=== PATIENT | female | born 1940 | race Caucasian/White ===

== ENCOUNTER 2017-08-31 13:16 | Outpatient (CLI) | payer MEDICARE ==
[2017-08-31 14:35] LABS: #Eosinphils 0.2 thou/uL (0.0-0.7); #Monocytes 0.6 thou/uL (0.11-0.59); #Neutrophils 6.7 thou/uL (1.40-6.50); %Basophils 0.5 % (0.0-1.0); %Eosinophils 2.5 % (0.0-10.0); %Lymphocytes 21.2 % (21.0-51.0); %Monocytes 5.9 % (0.0-10.0); %Neutrophils 69.9 % (42.0-75.0); Hemoglobin 13.5 g/dL (12.0-16.0); Mean Corpuscular HGB CONC 32.5 g/dL (32.0-36.0); Mean Corpuscular Hemoglobin 30.2 pg (27.0-31.0); Mean Corpuscular Volume 92.9 fl (81.0-99.0); Mean Platelet Volume 7.5 fL (7.4-10.4); Platelet Count 363 thou/uL (130-400); RBC Distribution Width 12.6 % (11.5-14.5); Red Blood Cell (RBC) Count 4.48 mill/uL (4.20-5.40); White Blood Cell (WBC) Count 9.6 thou/uL (4.8-10.8)
[2017-08-31 14:40] LABS: Prothrombin Time 12.8 SEC (12.0-14.7)
[2017-08-31 14:50] LABS: Bilirubin Negative (Negative); Blood, Urine Negative (Negative); Clarity CLEAR (Clear); Glucose, Urine (Dipstick) Negative (Negative); Leukocyte Trace (Negative); Nitrite Negative (Negative); Protein, Urine (Dipstick) Negative (Neg-Trace); Specific Gravity, Urine 1.014 (1.002-1.036)
[2017-08-31 14:54] LABS: Bacteria/HPF None Seen HPF (None Seen); Hyaline Casts/LPF 0-3 HYALINE CAST LPF (0-3 Hyaline); Pathc Cast-AUWi Flag 0.67 (0-2.49); Squamous Epithelial 0-3 HPF (0-3); WBC/HPF 0-3 HPF (0-3)
[2017-08-31 15:02] LABS: Anion Gap 12 mmol/L (10-20); BUN (Urea Nitrogen) 17 mg/dL (9.8-20.1); Calc. Creatinine Clearance 0 mL/min (70-130); Calcium 10.3 mg/dL (7.8-10.44); Carbon Dioxide 25 mmol/L (23-31); Chloride 101 mmol/L (98-107); Estimated GFR-MDRD 66; Glucose 111 mg/dL (83-110); Potassium 3.7 mmol/L (3.5-5.1); Sodium 134 mmol/L (136-145)
--- NOTE | 2017-08-31 15:52 | EKG ---
Test Reason : Blood Pressure : / mmHG Vent. Rate : 092 BPM Atrial Rate : 092 BPM P-R Int : 192 ms QRS Dur : 090 ms QT Int : 348 ms P-R-T Axes : 050 088 043 degrees QTc Int : 430 ms Normal sinus rhythm Normal ECG Confirmed by FABRICE MATTHEWS ([id number]) on 08/31/2017 3:52:11 PM Referred By: NIYAHRO Confirmed By:FABRICE MATTHEWS
== END 2017-08-31 13:17 | disposition home or self-care (01) ==
LOC: LABBT 13:16
PROVIDERS: ATTEND Orthopaedic Surgery
DX: Z01.818 Encounter for other preprocedural examination (principal); M17.11 Unilateral primary osteoarthritis, right knee
CPT/HCPCS: 80048; 81001; 85025; 85610; 87081; 93005; 93010

== ENCOUNTER 2017-09-09 14:57 | Outpatient (CLI) | payer MEDICARE | END 2017-09-09 14:58 | disposition home or self-care (01) | LOC: LABBT 14:57 | PROVIDERS: ATTEND Orthopaedic Surgery | DX: Z01.818 Encounter for other preprocedural examination (principal); M17.11 Unilateral primary osteoarthritis, right knee | CPT/HCPCS: 86850; 86900; 86901 ==

== ENCOUNTER 2017-09-12 05:30 | Day surgery (SDC) | payer MEDICARE ==
[2017-08-31 13:57] VITALS: BMI 41.1
[2017-09-12] MEDS ORDERED: CEFAZOLIN/Water 2 GM/20 ML SYRINGE ONE (06:10)
[2017-09-12] MEDS ORDERED: Tranexamic Acid 1,000 MG/100 ML BAG ONE ×2 (06:11→09:20)
[2017-09-12] MEDS ORDERED: Midazolam HCl 2 mg/2 ml Vial ONE (06:27)
[2017-09-12] MEDS ORDERED: Fentanyl 250 MCG/5 ML VIAL ONE ×2 (06:27→07:28)
[2017-09-12] MEDS ORDERED: Vancomycin HCl 1.5 GM in Sodium Chloride 0.9% 250 ML 300 ML IVPB SCH (06:30)
[2017-09-12] MEDS ORDERED: Bupivacaine 0.5% 10 ML VIAL ONE (06:35)
[2017-09-12] MEDS ORDERED: Ondansetron HCl/PF 4 MG/2 ML Vial IVP PRN ×3 (07:21→09:29)
[2017-09-12] MEDS ORDERED: Zolpidem Tartrate 5 MG TAB PO PRN ×2 (07:21→09:26)
[2017-09-12] MEDS ORDERED: Promethazine HCl 25 MG/ML VIAL IM PRN ×3 (07:21→09:29)
[2017-09-12] MEDS ORDERED: HYDROcodone/Acetaminophen 10/325 mg Tablet PO PRN ×2 (07:21)
[2017-09-12] MEDS ORDERED: Ropivacaine 0.2% 550 ML 550 ML NERVE BLCK SCH (07:21)
[2017-09-12] MEDS ORDERED: Fentanyl 100 MCG/2 ML VIAL IV PRN (07:21)
[2017-09-12] MEDS ORDERED: traMADol HCl 50 MG TAB PO PRN ×3 (07:21→09:26)
[2017-09-12] MEDS ORDERED: diphenhydrAMINE 25 MG CAP PO PRN (09:26)
[2017-09-12] MEDS ORDERED: Acetaminophen 325 MG TAB PO PRN (09:26)
[2017-09-12] MEDS ORDERED: Promethazine HCl 25 MG/ML VIAL SLOW IVP PRN (09:29)
[2017-09-12] MEDS ORDERED: Tranexamic Acid 1,000 MG in Sodium Chloride 0.9% 100 ML IVPB SCH (09:30)
--- NOTE | 2017-09-12 09:43 | OP ---
DATE OF PROCEDURE: 09/12/2017 PREOPERATIVE DIAGNOSIS: Right knee osteoarthrosis. POSTOPERATIVE DIAGNOSIS: Right knee osteoarthrosis. PROCEDURE PERFORMED: Right total knee replacement using [employer] pinless navigation. SURGEON: Darrick Giron M.D. CLOTH DESIZING RANGE TENDER: Aylin. ANESTHESIA: The patient had general anesthetic as well as preoperative blocks. CONDITION: She did go to recovery room in stable condition. IMPLANTS: To the right knee is Jennifer [employer] total knee system, femur size 5, tibial baseplate s ize 4. We used a 4 x 9 mm CS X3 poly and an asymmetric 29 x 9 X3 patella. DISPOSITION: She did go to recovery room in stable condition. INDICATIONS: A 77-year-old active female who had her left knee replaced 2 years ago and at this time she is wishing to have a right knee replaced secondary to significant daily pain. PROCEDURE IN DETAIL: After all appropriate consent forms were explained and signed, the patient was taken back to the Operating Room and at this time was given general anesthetic. Once the level of ane sthesia was appropriate, a well-padded tourniquet was placed on the right leg and the leg was then pr epped and draped in standard surgical fashion. The limb was exsanguinated and tourniquet taken up to 300 mmHg. Midline incision was made with a 10 blade down through the skin and subcutaneous tissue. Marques vie electrocautery was used to coagulate any brisk venous bleeding. A new blade was used to make a me dial parapatellar arthrotomy. Small subperiosteal release was performed medially and excess fat pad w as removed. The knee was flexed up to gain access to the femur. The femur was navigated and distal fe moral resection was made. Epicondylar access was used to align our sizing jig and this was pinned in place. We sized our femur to be a size 5, 4:1 cutting block was applied and pinned. Anterior and post erior chamfer cuts were then made. We navigated out our proximal tibia and made our proximal tibial r esection. Spreaders were used to remove any posterior osteophytes off the back of the femur as well a s remaining meniscal tissue. A long alignment bernabe was then used to achieve correct rotation of our ti bial baseplate and a size 4 was chosen. This was pinned in place. We trialed the polyethylene and a 4 x 9 mm CS X3 polyethylene gave us full extension and good stability throughout range of motion. Two towel clips and a saw were used to cut our patella. Three lug nuts were drilled and 29 x 9 X3 patella was trialed which sat nicely in the trochlear groove. We then drilled our femur and punched our tibi a. All components were removed. The knee was thoroughly irrigated and dried. Cement was mixed into th e cement gun on the back table. Components were then placed. The knee was held out in full extension until the cement had dried. All excess bone cement was removed. Multiple #2 Vicryl stitches as well as a Quill was used to close our extensor mechanism. 0 Quill followed by a running Monoderm was then used to close the skin. Surgicel glue was then used on the skin. Once this had dried, soft tissue carol ssing was applied to the limb, tourniquet was let down, and the toes pinked up nicely. The patient w as then awakened and taken to the Recovery Room in stable condition. All counts were correct at the e nd of the case. The patient did receive preoperative IV antibiotics. The patient was injected with E xparel for postoperative pain relief.
[2017-09-12] MEDS ORDERED: Calcium Chloride 1 GM/10 ML Abboject SYRINGE ONE (10:14)
[2017-09-12] MEDS ORDERED: hydrALAZINE 20 MG/ML VIAL SLOW IVP PRN (12:08)
[2017-09-12] MEDS: Ketorolac Tromethamine 30 MG/ML VIAL IVP SCH ×3 (13:21→23:39)
[2017-09-12] MEDS: CEFAZOLIN/Water 2 GM/20 ML SYRINGE SLOW IVP SCH ×2 (14:37→21:08)
[2017-09-12] MEDS ORDERED: Ropivacaine 0.2% HCl/PF (40 MG/20 ML VIAL) ONE (16:39)
[2017-09-12] MEDS ORDERED: Ropivacaine 0.5% HCl/PF (150 MG/30 ML VIAL) ONE (16:39)
[2017-09-12] MEDS ORDERED: ePHEDrine/0.9% NaCl/PF SYRINGE 50 mg/10 ml ONE (17:09)
[2017-09-12] MEDS ORDERED: PHENYLEPHRINE-NS 100 MCG/ML 10 ML SYRINGE ONE (17:09)
[2017-09-12] MEDS ORDERED: Ondansetron HCl/PF 4 MG/2 ML Vial ONE (17:09)
[2017-09-12] MEDS ORDERED: Dexamethasone 20 MG/5 ML VIAL ONE (17:09)
[2017-09-12] MEDS ORDERED: PROPOFOL 200 MG/20 ML VIAL ONE (17:09)
[2017-09-12] MEDS: Sodium Chloride 0.9% 1,000 ML IV SCH ×2 (19:15→21:30)
[2017-09-12] MEDS ORDERED: Lisinopril 20 MG TAB PO SCH (21:00)
--- NOTE | 2017-09-12 21:07 | PDOC.PN ---
- Subjective Encounter Start Date: 09/12/17 Encounter Start Time: 12:30 Patient seen and examined. No new complaints. Pain controlled. No CP/SOB - Objective MAR Reviewed: Yes Vital Signs & Weight: Vital Signs (12 hours) Temp Pulse Resp BP Pulse Ox 09/12/17 20:00 97.7 F 81 20 09/12/17 11:00 97.7 F 81 20 114/69 98 Weight Weight 232 lb EKG Reviewed by me: Yes (SR) Phys Exam - Physical Examination Constitutional: NAD Respiratory: no wheezing, no rhonchi Cardiovascular: RRR, no rub Gastrointestinal: soft, non-tender, positive bowel sounds Musculoskeletal: no edema Dx/Plan - Plan DVT proph w/SCDs IMPRESSION: 1. HTN 2. DJD 3. Hypothyroidism PLAN: * Cont Lisinopril & HCTZ * Cont post op care * Cont to monitor Review of Systems - Review of Systems Respiratory: negative: Cough, Dry, Shortness of Breath, Hemoptysis, SOB with Excertion, Pleuritic Pain, Sputum, Wheezing Cardiovascular: negative: chest pain, palpitations, orthopnea, paroxysmal nocturnal dyspnea, edema, light headedness Gastrointestinal: negative: Nausea, Vomiting, Abdominal Pain, Diarrhea, Constipation, Melena, Hematochezia - Medications/Allergies Allergies/Adverse Reactions: Allergies Allergy/AdvReac Type Severity Reaction Status Date / Time No Known Allergies Allergy Unverified 08/31/17 13:54 Medications: Current Medications Acetaminophen (Tylenol) 650 mg PO Q4H PRN PRN Reason: ALEXANDRE/ T > 101F; Mild Pain (1-3) Hydrocodone Bitart/Acetaminophen ([place] 10/325) 1 tab PO Q4H PRN PRN Reason: Pain (1-3) Hydrocodone Bitart/Acetaminophen ([place] 10/325) 2 tab PO Q4H PRN PRN Reason: PAIN (4-6) Aspirin (Ecotrin) 81 mg PO BID KAMRYN Cefazolin Sodium (Ancef) 2 gm SLOW IVP Q8HR KAMRYN Stop: 09/12/17 22:01 Last Admin: 09/12/17 14:37 Dose: 2 gm Diphenhydramine HCl (Benadryl) 25 mg PO Q6H PRN PRN Reason: Itching Fentanyl (Sublimaze) 50 mcg IV Q1H PRN PRN Reason: BREKTHROUGH PAIN Ferrous Gluconate (Fergon) 324 mg PO BID [facility] Hydralazine HCl (Apresoline) 5 mg SLOW IVP Q4H PRN PRN Reason: SBP Greater Than 180 Ropivacaine (Ropivacaine 0.2% 550 Ml) 550 mls @ 0 mls/hr NERVE BLCK INF KAMRYN PRN Reason: As Directed Sodium Chloride (Normal Saline 0.9%) 1,000 mls @ 100 mls/hr IV .Q10H [facility] Last Admin: 09/12/17 19:15 Dose: Not Given Iron/Minerals/Multivitamins (Theragran M) 1 tab PO DAILY [facility] Ketorolac Tromethamine (Toradol) 15 mg IVP Q6HR [facility] Stop: 09/14/17 06:01 Last Admin: 09/12/17 18:02 Dose: 15 mg Lisinopril (Zestril) 20 mg PO BID [facility] Ondansetron HCl (Zofran) 4 mg IVP Q6H PRN PRN Reason: Nausea/Vomiting Ondansetron HCl (Zofran) 4 mg IVP Q6H PRN PRN Reason: Nausea/Vomiting Promethazine HCl (Phenergan) 12.5 mg IM Q4H PRN PRN Reason: Nausea Promethazine HCl (Phenergan) 12.5 mg IM Q4H PRN PRN Reason: Nausea/Vomiting Senna/Docusate Sodium (Senokot S) 2 tab PO BID [facility] Sodium Chloride (Flush - Normal Saline) 10 ml IVF PRN PRN PRN Reason: Saline Flush Tramadol HCl (Ultram) 50 mg PO Q6H PRN PRN Reason: Mild Pain (1-3) Tramadol HCl (Ultram) 100 mg PO Q6H PRN PRN Reason: Moderate Pain 4-6 Tramadol HCl (Ultram) 100 mg PO Q6H PRN PRN Reason: Mild Pain (1-3) Zolpidem Tartrate (Ambien) 5 mg PO HSPRN PRN PRN Reason: Insomnia Zolpidem Tartrate (Ambien) 5 mg PO HSPRN PRN PRN Reason: Insomnia
[2017-09-12] MEDS: Senokot S 8.6-50 MG TAB PO SCH (21:09)
[2017-09-12] MEDS: Lisinopril 20 MG TAB PO SCH (21:09)
[2017-09-12] MEDS: Ferrous Gluconate 324 MG TAB PO SCH (21:09)
[2017-09-12] MEDS: Aspirin 81 mg Enteric Coated Tablet PO SCH (21:09)
[2017-09-13] MEDS: Sodium Chloride 0.9% 1,000 ML IV SCH (04:30)
[2017-09-13] MEDS: Ketorolac Tromethamine 30 MG/ML VIAL IVP SCH (05:46)
[2017-09-13 06:03] LABS: Mean Corpuscular HGB CONC 32.4 g/dL (32.0-36.0); Mean Corpuscular Hemoglobin 30.3 pg (27.0-31.0); Mean Corpuscular Volume 93.7 fl (81.0-99.0); Mean Platelet Volume 7.2 fL (7.4-10.4); Platelet Count 295 thou/uL (130-400); RBC Distribution Width 12.5 % (11.5-14.5); Red Blood Cell (RBC) Count 3.62 mill/uL (4.20-5.40)
[2017-09-13] MEDS: Aspirin 81 mg Enteric Coated Tablet PO SCH (07:40)
[2017-09-13] MEDS: Senokot S 8.6-50 MG TAB PO SCH (07:40)
[2017-09-13] MEDS: Ferrous Gluconate 324 MG TAB PO SCH (07:41)
[2017-09-13] MEDS ORDERED: Multivitamin W/ Minerals 1 TAB PO SCH (09:00)
[2017-09-13] MEDS ORDERED: Hydrochlorothiazide 25 MG TAB PO SCH (09:00)
[2017-09-13 09:17] VITALS: BP 101/56; TEMP 98.7
[2017-09-13] MEDS: Lisinopril 20 MG TAB PO SCH (10:19)
== END 2017-09-13 14:50 | disposition home or self-care (01) ==
LOC: SDC 05:30 → SJJU 10:20 → SDC 09-13 14:50
PROVIDERS: ATTEND Orthopaedic Surgery
PROC: 0SRC0J9 Replacement of Right Knee Joint with Synthetic Substitute, Cemented, Open Approach (ICD-10-PCS; principal; 2017-09-12)
DX: M17.11 Unilateral primary osteoarthritis, right knee (principal); I10 Essential (primary) hypertension; E03.9 Hypothyroidism, unspecified; Z96.652 Presence of left artificial knee joint
CPT/HCPCS: 27447; 85027; 86850; 86900; 86901; 97110; 97116 ×2; 97139; 97150; 97530; A4306; C1713; C1776; G8978; G8979; 36415; J1100; J1885; J2250; J2405; J2704; J2795; J3010; J3370; J3490; J7050